=== PATIENT | male | born 1970 | race Caucasian/White ===

== ENCOUNTER 2018-12-04 14:48 | Emergency (ER) | payer SELFPAY ==
[2018-12-04 14:53] VITALS: BP 186/107; PULSE 95; RESP 14; TEMP 37.4; O2SAT 98
[2018-12-04] MEDS: Prochlorperazine 10 MG TAB PO (15:04)
--- NOTE | 2018-12-04 15:06 | ED.GENADUL_ITS ---
Discharge Plan Disposition Patient Disposition: HOME Condition: Stable Discharge Details Chief Complaint: HeadInjury Clinical Impression: Contusion of head ED Provider: Madhu Jeter Home Meds and New Rx's Prescriptions: No Action No Known Home Meds RF: 0 Discharge Instructions Additional Instructions: 1. Drink plenty of fluids. 2. Continue all medications as prescribed. 3. Acetaminophen 1000mg every 4 hours (up to 5 time a day) and/or ibuprofen 600mg every 6 hours as needed for fever or pain. 4. Bacitracin to wound twice a day. Return to the Emergency Department (ED) if your condition worsens, does not improve as expected, or for ANY other concerns. Specifically, return if you have new or uncontrolled pain, worsening fever, difficulty breathing, vomiting, or are unable to drink fluids. Medical Decision Making Presents for evaluation of an acute head injury after falling forward and striking his right forehead on a metal object. No true LOC and a superficial longitudinal right forehead laceration with no penetration of the dermis or active bleeding. Except for local tenderness and subjective headache, nonfocal exam with baseline deficits from remote trauma. Mild clinical improvement after receiving oral Compazine and OTC analgesia. Head CT negative. Discussed diagnostic and clinical findings with patient was discharged home with plan for conservative management as an outpatient. Pt evaluated immediately prior to discharge with improved symptoms, normal vital signs, and tolerating PO. The patient feels appropriate for discharge home. Discussed clinical/diagnostic findings. Discharged with a clear plan for outpatient follow up. Given usual and customary return instructions prior to discharge. Medical Records Medical records reviewed: Yes I reviewed the patient's medical records. Imaging Data Radiologic Study: Attestation: I personally reviewed and interpreted this imaging study as follows: Imaging: CT Scan (Head CT) My impression: No acute intracranial process. Interpreted independently and contemporaneously by myself. Reviewed radiology report. Radiologist's impression: Not available at time of patient disposition. HPI 64-year-old gentleman with a remote history of traumatic injury which is resulted in inability for a right eye lateral gaze and permanent weakness in his left upper extremity. Presents for evaluation of injury sustained in a fall with frontal head impact. He describes tripping and falling forward striking his right forehead on a hard object. He had no LOC but has had severe local head pain and a generalized headache since. He denies significant neck pain or atypical focal extremity weakness. He has no visual changes, hearing loss, change in speech. He denies other significant injury. General Date/Time Provider Initiated Documentation: 12/04/18 14:50 . Related Data Home Medications Medication Instructions Recorded Confirmed Unknown [No Known Home Meds] 12/04/18 12/04/18 Allergies Allergy/AdvReac Type Severity Reaction Status Date / Time Penicillins Allergy Unverified 12/04/18 14:59 General Stated Complaint: HeadInjury ALVAREZ: 3 Review of Systems Review of Systems All systems are reviewed and are unremarkable except as noted in HPI and below: CONSTITUTIONAL: no fevers/chills, no weakness or change in appetite EYES: no change in vision HEENT: no throat pain or difficulty swallowing; no neck pain CARDIOVASCULAR: no chest pain, palpitations, leg swelling, or diaphoresis RESPIRATORY: no cough, dyspnea, wheezing GASTROINTESTINAL: no abdominal pain, melena. nausea with no emesis GENITOURINARY: no dysuria, flank pain, MUSCULOSKELETAL: no pack pain, myalgias, arthralgias INTEGUMENTARY: no rash, no wounds NEUROLOGIC: headache. No acute focal weakness, difficulty with speech, numbness PSYCHIATRIC: no confusion, no anxiety HEME: no easy bruising or bleeding ALLERGIC: no urticaria PFSH Social History Smoking/Tobacco Use Status: Never Alcohol Intake: never Drug use: Never Substance use type: does not use Do you feel safe at home: Yes Do you feel safe in your relationship?: Yes Exam Narrative Exam Narrative: Nursing note and vital signs have been reviewed and noted. GENERAL: alert, active, no acute distress, well -hydrated, well-nourished HEENT: Superficial vertical 4 cm laceration on the right forehead through the dermis and has well approximated wound edges and with no active bleeding. Mild tenderness in the same region with no significant soft tissue swelling, deformity, or ecchymosis. Normocephalic, PERRLA, R eye with no lateral gaze (chronic), conjunctiva clear, external ears/canals normal, nasal mucosa normal NECK: Nontender, supple, full range of motion, no mass, normal lymphadenopathy, no thyromegaly CARDIOVASCULAR: RRR, no murmurs, nl pulses, no edema PULMONARY: nl effort, no audible wheezing or stridor, nl breath sounds with no focal deficit. no chest wall tenderness ABDOMEN: soft, non-tender, non-distended, no mass, no organomegaly EXTREMITY: normal muscle tone, all joints with FROM, no deformity or tenderness SKIN: no exanthem appreciated NEURO: gross motor exam normal except for left upper extremity with baseline weakness which is subjectively stable according to the patient. , normal stance and gait PSYCH: alert and oriented, Course Vital Signs Temperature 99.3 F 12/04/18 14:53 Pulse 95 H 12/04/18 14:53 Respiratory Rate 14 12/04/18 14:53 Blood Pressure 186/107 H 12/04/18 14:53 Pulse Oximetry 98 12/04/18 14:53 Temperature 99.3 F 12/04/18 14:53 Temperature Source Temporal Artery Scan 12/04/18 14:53 Pulse 95 H 12/04/18 14:53 Respiratory Rate 14 12/04/18 14:53 Respiratory Effort Non-Labored 12/04/18 14:59 Respiratory Depth Normal 12/04/18 14:56 Respiratory Pattern Normal 12/04/18 14:56 Blood Pressure 186/107 H 12/04/18 14:53 Blood Pressure Position Sitting 12/04/18 14:53 Pulse Oximetry 98 12/04/18 14:53 Oxygen Delivery Method Room Air 12/04/18 14:53 Oxygen Flow Rate 0 12/04/18 14:53 Pain Level 6 12/04/18 14:53
--- NOTE | 2018-12-04 15:19 | DI.CT_ITS ---
SYMPTOM/DIAGNOSIS: HEAD CONTUSION NONCONTRAST CRANIAL CT: A noncontrast cranial CT was performed. Note is made of mucoperiosteal thickening and air fluid levels in maxillary antra bilaterally consistent with sinusitis. The paranasal sinuses and mastoid air cells are otherwise well aerated. Orbital structures appear intact. No evidence of acute intracranial hemorrhage, mass effect or midline shift. CONCLUSION: No evidence of acute intracranial injury.
[2018-12-04] MEDS: Acetaminophen 500 MG TAB (15:38)
[2018-12-04 15:39] VITALS: BP 185/108
[2018-12-04] MEDS: Ibuprofen 800 MG TAB (15:39)
--- NOTE | 2018-12-04 15:53 | DI.VRAD_ITS ---
EXAM: CT Head Without Contrast EXAM DATE/TIME: 12/04/2018 3:00 PM CLINICAL HISTORY: 48 years old, male; Injury or trauma; Fall; Initial encounter; Concussion / head injury; Without loss of consciousness; Patient HX: Head contusion. ; Additional info: S/P fall hitting head on shelf. TECHNIQUE: Imaging protocol: Axial computed tomography images of the head/brain without contrast. Coronal and sagittal reformatted images were created and reviewed. COMPARISON: No relevant prior studies available. 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 Mild generalized atrophy. Cortical beatty-white differentiation is maintained. No evidence for brain edema or mass. No midline shift. No hemorrhage. Ventricles: Unremarkable. No hydrocephalus. Bones/joints: Unremarkable. No acute fracture. Sinuses: Mucosal thickening and fluid in both maxillary sinuses. Mastoid air cells: Left mastoid sclerosis. Soft tissues: Mild posterior right scalp thickening/contusion. IMPRESSION: 1. Negative for skull fracture or acute intracranial pathology. 2. Maxillary sinus disease. Dictated and Authenticated by: Kylah Way MD. Ordering:BIANKA Leung MD
== END 2018-12-04 15:38 | disposition home or self-care (01) ==
LOC: ER 15:43
PROVIDERS: Emergency Provider Emergency Medicine
DX: S00.83XA Contusion of other part of head, initial encounter (principal); W01.0XXA Fall on same level from slipping, tripping and stumbling without subsequent striking against object, initial encounter
CPT/HCPCS: 99284; 70450